=== PATIENT | female | born 1975 | race Caucasian/White ===

== ENCOUNTER → 2017-03-23 | Outpatient (CLI) | payer BC ==
[~2017-03-23] MED LIST: ACET-749 PO; AMX500 PO; CLC100 PO; IBUP600T44 PO; PRENTAB26 PO
--- NOTE | 2017-03-23 10:14 | DIAGNOSTIC IMAGING REPORT ---
ABDOMEN AND PELVIS CT WITHOUT CONTRAST CT DOSE: 948.43 mGycm HISTORY: Generalized abdominal pain. TECHNIQUE: Multiaxial CT images of the abdomen and pelvis were performed without contrast. A dose lowering technique was utilized adhering to the principles of ALARA. COMPARISON STUDY: Pelvic ultrasound 06/07/2009. FINDINGS: The lung bases are clear. No pneumoperitoneum. No pneumatosis. No suspicious lytic or blastic osseous lesions. Hepatic steatosis. The unenhanced gallbladder, pancreas, spleen, and adrenal glands are unremarkable. No renal or ureteral stones. No hydronephrosis. No retroperitoneal lymphadenopathy. The bladder is decompressed. Suboptimal evaluation for bowel pathology due to the lack of intravenous and oral contrast. However, there is no definite bowel wall thickening or obstruction. The uterus is enlarged measuring 12 x 8.3 x 7.8 cm. There is a large calcified mass anterior to the bladder which appears contiguous with the anterior wall the uterus. This measures 8.9 x 5.1 cm. This favors a calcified uterine fibroid. There is a heterogeneous appearance to the endometrial cavity which appears distended measuring up to 4.8 cm in thickness. This is suboptimally evaluated on this noncontrast study but is concerning for an endometrial mass. The ovaries are not well assessed on this noncontrast study. Normal appendix. IMPRESSION: 1. There is a heterogeneous appearance to the endometrial cavity which appears distended measuring up to 4.8 cm in thickness. This is suboptimally evaluated on this noncontrast study but is concerning for an endometrial mass. Follow-up pelvic ultrasound and gynecologic consultation is recommended. 2. There is a large calcified mass anterior to the bladder which appears contiguous with the anterior wall the uterus. This measures 8.9 x 5.1 cm. This favors a calcified uterine fibroid. 3. No definite bowel wall thickening or obstruction. 4. Hepatic steatosis. Electronically signed by: Armando Winn M.D. 03/23/2017 10:12 AM Dictated Date/Time: 03/23/2017 10:03 AM
--- NOTE | 2017-03-23 12:24 | DIAGNOSTIC IMAGING REPORT ---
PELVIC ULTRASOUND CLINICAL HISTORY: Abdominal pain. COMPARISON STUDY: Pelvic ultrasound June 07, [address] of the abdomen and pelvis March 23, 2017. TECHNIQUE: Transabdominal and transvaginal sonography of the pelvis was performed. FINDINGS: The uterus is enlarged, measuring 11.4 x 7.6 x 7.1 cm. The endometrium is obscured on this examination. Several hypoechoic lesions with echogenic foci consistent with calcifications reflect fibroids, the largest of which projects off the anterior aspect of the uterus. This corresponds to the partially calcified abnormality on prior CT. Note is made of a 4.7 cm round isoechoic abnormality within the uterus that corresponds to the finding shown on prior CT. This favors a submucosal fibroid within the uterine fundus. Neither ovary was visualized. There was no free fluid. IMPRESSION: 1. Numerous hypoechoic partially calcified uterine lesions suggestive of fibroids. The size of these fibroids is difficult to assess on this exam and is better demonstrated on CT. 2. 4.7 cm round abnormality within the uterine fundus which corresponds to the abnormality on prior CT. Although indeterminate, a submucosal fibroid is favored. An endometrial mass would be difficult to exclude but is considered less likely. Electronically signed by: Jonatan Samson M.D. 03/23/2017 12:22 PM Dictated Date/Time: 03/23/2017 12:15 PM
== END | disposition home or self-care (01) ==
LOC: C.CTS 09:29
PROVIDERS: ATTEND Family Medicine
DX: R10.9 Unspecified abdominal pain (principal); N85.2 Hypertrophy of uterus; K76.0 Fatty (change of) liver, not elsewhere classified; N85.8 Other specified noninflammatory disorders of uterus